=== PATIENT | male | born 1975 | race African-American/Black ===

== ENCOUNTER 2016-06-18 01:20 | Emergency (ER) | payer SELFPAY ==
[~2016-06-18] VITALS: Ht 185.4 cm; Wt 88.5 kg
[2016-06-18] MEDS ORDERED: NKM (01:28)
[2016-06-18 01:50] VITALS: BP 149/99
[2016-06-18] MEDS ORDERED: Bicillin LA 1.2 Million Units Syr IM ONE (02:00)
[2016-06-18] MEDS ORDERED: Ketorolac 60mg Inj IM ONE (02:00)
[2016-06-18] MEDS ORDERED: IBUPROFEN600 MG ORAL (02:16)
[2016-06-18] MEDS ORDERED: CORTISPORIN EAR10 ML RIGHT EAR (02:16)
[2016-06-18 02:22] VITALS: BP 149/99
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
== END 2016-06-18 02:22 | disposition home or self-care (01) ==
LOC: EMR 01:40
DX: H60.91 Unspecified otitis externa, right ear (principal); R68.84 Jaw pain
CPT/HCPCS: 96372; 99284; J0570; J0561

== ENCOUNTER 2016-11-04 17:00 | Emergency (ER) | payer SELFPAY ==
[~2016-11-04] VITALS: Ht 185.4 cm; Wt 88.5 kg
[~2016-11-04 17:00] MED LIST: CORTISPORIN EAR10 ML RIGHT EAR; IBUPROFEN600 MG ORAL; NKM
[2016-11-04 17:10] VITALS: BP 124/75
--- NOTE | 2016-11-04 17:28 | Emergency Room Report ---
History of Present Illness General Chief Complaint: Stroke Symptoms Source: Patient Present Illness HPI 41-year-old male no significant past medical history presenting with bilateral hand numbness and left foot numbness began 2 hours ago. Patient states symptoms began while she was working in his garden. Patient smells of alcohol however denies any alcohol use today. Patient states that he smokes marijuana and smoked today Patient denies any headache blurry vision slurred speech nausea vomiting abdominal pain or any motor weakness. Patient states is the first occurrence of numbness. Denies any back pain saddle anesthesia urinary retention Allergies: Coded Allergies: No Known Allergies (Unverified , 06/18/16) Patient History Past Medical History: none Past Surgical History: none Pertinent Family History: none Social History: Reports: smoking, drug use Reviewed Nursing Documentation: PMH: Agreed, PSxH: Agreed Nursing Documentation-PMH Past Medical History: No Stated History Review of Systems All Other Systems: negative except mentioned in HPI Physical Exam Vital Signs Date Time Temp Pulse Resp B/P (MAP) Pulse Ox O2 Delivery O2 Flow Rate FiO2 11/04/16 17:02 97.3 77 26 124/77 100 Room Air Sp02 EP Interpretation: reviewed, normal General Appearance: normal inspection, well appearing, alert, GCS 15, non-toxic , mild distress Head: normocephalic, atraumatic Eyes: bilateral eye normal inspection, bilateral eye PERRL, bilateral eye EOMI ENT: normal ENT inspection, normal pharynx, normal voice, moist mucus membranes Neck: normal inspection, full range of motion, supple, no bony tend Respiratory: normal inspection, lungs clear, normal breath sounds, no respiratory distress, no retraction, no wheezing, speaking full sentences, chest symmetrical Cardiovascular #1: normal inspection, regular rate, rhythm, no edema, normal capillary refill Gastrointestinal: normal inspection, non tender, soft, non-distended, no guarding Genitourinary: no CVA tenderness Musculoskeletal: normal inspection, back normal, normal range of motion, non- tender Neurologic: normal inspection, alert, oriented x3, responsive, automation consultant III-XII nml as tested, motor strength/tone normal, sensory intact, normal gait, speech normal, other - motor strength 5/5 all ext, sensation to light touch intact throughout. no facial droop. Psychiatric: normal inspection, judgement/insight normal, memory normal Skin: normal inspection, normal color, no rash, warm/dry, well hydrated, normal turgor Medical Decision Making Diagnostic Impression: Primary Impression: Paresthesia and pain of both upper extremities Additional Impression: Hypoglycemia ER Course 41 yo M with b/l hand paresthesia and L foot numbness x 1 day DDX: electrolyte disturbance, dehydration, CVA Plan: Obtain labs, CXR, EKG, CT head ER course: hypoglycemic 60s -- given food, improvement of glucose CT head neg patients symptoms resolved. likely 2/2 to hypoglycemia unlikely to be tia/cva given distribution of numbness, and that sx resolved after hypoglycemia treated. Patient has remained stable during ED stay. States he no longer has any symptoms. aox3, neurologically intact. Disposition: Patient DCed to home. will fu with pmd within 1 week Labs Test 11/04/16 17:44 White Blood Count 9.2 K/UL (4.8-10.8) Red Blood Count 4.86 M/UL (4.70-6.10) Hemoglobin 14.6 G/DL (14.2-18.0) Hematocrit 44.2 % (42.0-52.0) Mean Corpuscular Volume 91 FL (80-99) Mean Corpuscular Hemoglobin 30.1 PG (27.0-31.0) Mean Corpuscular Hemoglobin Concent 33.1 G/DL (32.0-36.0) Red Cell Distribution Width 13.2 % (11.6-14.8) Platelet Count 230 K/UL (150-450) Mean Platelet Volume 9.3 FL (6.5-10.1) Neutrophils (%) (Auto) 61.3 % (45.0-75.0) Lymphocytes (%) (Auto) 24.8 % (20.0-45.0) Monocytes (%) (Auto) 10.0 % (1.0-10.0) Eosinophils (%) (Auto) 1.8 % (0.0-3.0) Basophils (%) (Auto) 2.0 % (0.0-2.0) Prothrombin Time 11.8 SEC (9.30-11.50) Prothromb Time International Ratio 1.1 (0.9-1.1) Activated Partial Thromboplast Time 30 SEC (23-33) Sodium Level 141 mEQ/L (135-145) Potassium Level 3.9 mEQ/L (3.4-4.9) Chloride Level 101 mEQ/L (98-107) Carbon Dioxide Level 26 mEQ/L (20-30) Anion Gap 14 (5-15) Blood Urea Nitrogen 11 mg/dL (7-23) Creatinine 1.4 mg/dL (0.7-1.2) Estimat Glomerular Filtration Rate > 60 mL/min (>60) Glucose Level 71 mg/dL (74-106) Calcium Level 9.3 mg/dL (8.6-10.2) Total Bilirubin 0.4 mg/dL (0.0-1.2) Aspartate Amino Transf (AST/SGOT) 16 U/L (5-40) Alanine Aminotransferase (ALT/SGPT) 14 U/L (3-41) Alkaline Phosphatase 79 U/L (40-129) Total Protein 8.6 g/dL (6.6-8.7) Albumin 4.1 g/dL (3.5-5.2) Globulin 4.5 g/dL Albumin/Globulin Ratio 0.9 (1.0-2.7) Serum Alcohol < 10 mg/dL EKG Diagnostic Results Rate: normal Rhythm: NSR ST Segments: other - KANG ASA given to the pt in ED: No Rhythm Strip Diag. Results EP Interpretation: yes Rhythm: NSR, no PVC's, no ectopy CT/MRI/US Diagnostic Results CT/MRI/US Diagnostic Results : Imaging Test Ordered: CT head Impression CT head: from stat rad no acute intracranial disease Last Vital Signs Date Time Temp Pulse Resp B/P (MAP) Pulse Ox O2 Delivery O2 Flow Rate FiO2 11/04/16 17:02 97.3 77 26 124/77 100 Room Air Disposition: HOME, SELF-CARE Condition: Improved Patient Instructions: Hypoglycemia, [id number], Paresthesia, [id number] Additional Instructions: Please follow up with your primary care doctor within 3 days. Please return to the emergency room immediately if you are experiencing headache , weakness of arms or legs, high fevers or chills, chest pain, shortness of breath, severe abdominal pain, nausea or vomiting. Rose Marie Collazo M.D. Nov 04, 2016 17:28
[2016-11-04 18:07] LABS: INR 1.1 (0.9-1.1); PROTHROMBIN TIME 11.8 SEC (9.30-11.50)
[2016-11-04 18:08] LABS: EOSINOPHILS % (AUTO) 1.8 % (0.0-3.0); LYMPHOCYTES % (AUTO) 24.8 % (20.0-45.0); MEAN CORPUSCULAR HEMOGLOBIN 30.1 PG (27.0-31.0); MEAN CORPUSCULAR HGB CONC 33.1 G/DL (32.0-36.0); MEAN CORPUSCULAR VOLUME 91 FL (80-99); MEAN PLATELET VOLUME 9.3 FL (6.5-10.1); NEUTROPHILS % (AUTO) 61.3 % (45.0-75.0); PLATELET COUNT 230 K/UL (150-450); RED BLOOD COUNT 4.86 M/UL (4.70-6.10); RED CELL DISTRIBUTION WIDTH 13.2 % (11.6-14.8); WHITE BLOOD COUNT 9.2 K/UL (4.8-10.8)
[2016-11-04 18:11] LABS: ALANINE AMINOTRANSFERASE 14 U/L (3-41); ALBUMIN/GLOBULIN RATIO 0.9 (1.0-2.7); ALCOHOL < 10 mg/dL; ANION GAP 14 (5-15); ASPARTATE AMINO TRANSFERASE 16 U/L (5-40); CALCIUM 9.3 mg/dL (8.6-10.2); CARBON DIOXIDE 26 mEQ/L (20-30); CHLORIDE 101 mEQ/L (98-107); CREATININE 1.4 mg/dL (0.7-1.2); GLOMERULAR FILTRATION RATE > 60 mL/min (>60); HEMOLYSIS 13; POTASSIUM 3.9 mEQ/L (3.4-4.9); SODIUM 141 mEQ/L (135-145); TOTAL PROTEIN 8.6 g/dL (6.6-8.7)
[2016-11-04 18:45] VITALS: BP 123/76
[2016-11-04 19:50] VITALS: BP 121/79
[2016-11-04 19:51] VITALS: BP 121/79
--- NOTE | 2016-11-05 09:21 | Diagnostic Imaging Report ---
Indication: Altered mental status Technique: Contiguous 5 mm thick transaxial imaging of the head obtained in a Siemens Sensation [address] scanner. Soft tissue and bone windows generated. Total Dose length Product (DLP): [address] Dose Index Volume (CTDIvol): 70.38, 0.15 mGy Comparison: none Findings: The size and configuration of the cortical sulci, basal cisterns, and ventricles are within normal limits for age. There is no mass effect, midline shift, or edema identified. There is no evidence of acute hemorrhage or abnormal intra-axial or extra-axial fluid collections. The bones and soft tissues are unremarkable. Impression: No mass effect, edema or acute bleed. The CT scanner at [facility] is accredited by the [employer] and the scans are performed using dose optimization techniques as appropriate to a performed exam including Automatic Exposure control.
== END 2016-11-04 19:52 | disposition home or self-care (01) ==
LOC: EDBD 17:00 → EMR 19:01
DX: R20.0 Anesthesia of skin (principal); E16.2 Hypoglycemia, unspecified; F17.200 Nicotine dependence, unspecified, uncomplicated; F12.90 Cannabis use, unspecified, uncomplicated
CPT/HCPCS: 36415; 70450; 80053; 82962; 85025; 85610; 85730; 99284; G0480; 80329